=== PATIENT | male | born 1950 | race Caucasian/White ===

== ENCOUNTER 2017-11-04 12:37 | Inpatient (IN) | payer OTHER, MEDICARE, BC ==
[~2017-11-04] VITALS: Ht 182.9 cm; Wt 68.0 kg
[~2017-11-04 12:37] MED LIST: AMOX1TAB64 PO; PANT40TA5 PO; SUCR1TAB PO
[2017-11-04] MEDS ORDERED: ALBUTEROL/IPRATROPIUM 2.5MG/0.5MG, 3 ML ONE ×2 (13:09→14:40)
[2017-11-04] MEDS ORDERED: SODIUM CHLORIDE FLUSH 10ML SYR IVF ONE (13:30)
[2017-11-04] MEDS ORDERED: SODIUM CHLORIDE 0.9% 1,000ML IVBOLUS ONE (13:30)
[2017-11-04] MEDS ORDERED: ALBUTEROL/IPRATROPIUM 2.5MG/0.5MG, 3 ML NPPB SCH (13:30)
[2017-11-04 13:31] LABS: BASOPHILS # (AUTO) 0.11 x10^3/uL (0-0.1); BASOPHILS % (AUTO) 1 % (0-1); EOSINOPHILS # (AUTO) 0.04 x10^3/uL (0-0.4); EOSINOPHILS % (AUTO) 0 % (1-7); LYMPHOCYTES # (AUTO) 0.56 x10^3/uL (1-3.4); LYMPHOCYTES % (AUTO) 5 % (22-44); MD NO; MEAN CORPUSCULAR HEMOGLOBIN 30.8 pg (27.5-34.5); MEAN CORPUSCULAR HGB CONC 33.6 g/dL (33.2-36.2); MEAN CORPUSCULAR VOLUME 91.8 fL (81-97); MEAN PLATELET VOLUME 9.4 fL (7.4-10.4); MONOCYTES % (AUTO) 8 % (2-9); NEUTROPHILS # (AUTO) 9.39 x10^3/uL (1.8-6.8); NEUTROPHILS % (AUTO) 85 % (42-75); PLATELET COUNT 393 x10^3/uL (130-400); RED BLOOD COUNT 5.46 x10^6/uL (4.38-5.82); RED CELL DISTRIBUTION WIDTH 14.1 % (9.4-14.8)
[2017-11-04 13:46] LABS: ALANINE AMINOTRANSFERASE 24 U/L (12-78); ALBUMIN 3.7 g/dL (3.4-5.0); ANION GAP 8 mmol/L (5-15); CALCIUM 8.8 mg/dL (8.5-10.1); CHLORIDE 102 mmol/L (98-107); CREATININE 1.01 mg/dL (0.7-1.3)
[2017-11-04 13:50] LABS: ALKALINE PHOSPHATASE 83 U/L (45-117); BILIRUBIN,TOTAL 0.7 mg/dL (0.2-1.0); TOTAL PROTEIN 7.3 g/dL (6.4-8.2); TROPONIN I < 0.015 ng/mL (0.000-0.045)
[2017-11-04] MEDS ORDERED: BENZONATATE 100 MG CAPSULE ONE (13:52)
[2017-11-04] MEDS ORDERED: ALBUTEROL 0.5%, 20ML NPPB SCH (14:30)
[2017-11-04 15:14] VITALS: BP 146/81
[2017-11-04] MEDS ORDERED: LABETALOL 5MG/ML, 20ML IVPush PRN (17:00)
[2017-11-04] MEDS ORDERED: POLYETHYLENE GLYCOL 17 GM PACKET PO PRN (17:00)
[2017-11-04] MEDS ORDERED: ONDANSETRON ODT 4 MG PO PRN (17:00)
[2017-11-04] MEDS ORDERED: ONDANSETRON 2MG/ML, 2ML IVPush PRN (17:00)
[2017-11-04] MEDS ORDERED: GUAIFENESIN/DM 200-20MG, 10ML UDC PO PRN (17:00)
[2017-11-04 17:26] LABS: D-DIMER 0.59 ug/mlFEU (0.00-0.52); INTERNATIONAL NORMALIZED RATIO 0.97 (0.93-1.1)
[2017-11-04 17:34] LABS: FREE T4 (FREE THYROXINE) 1.24 ng/dL (0.76-1.46); THYROID STIMULATING HORMONE 2.03 mIU/L (0.358-3.740)
[2017-11-04] MEDS: ENOXAPARIN 40 MG/0.4 ML SQ SCH (18:13)
[2017-11-04] MEDS: methylPREDNISolone SOD SUCC 125 MG/2 ML IVPush SCH ×2 (18:13→23:29)
[2017-11-04 19:11] LABS: TROPONIN I < 0.015 ng/mL (0.000-0.045)
[2017-11-04 19:20] VITALS: BP 107/63
[2017-11-04] MEDS: ALBUTEROL/IPRATROPIUM 2.5MG/0.5MG, 3 ML NPPB SCH (19:35)
[2017-11-04] MEDS: DOXYCYCLINE 100MG TABLET PO SCH (20:23)
[2017-11-05 02:13] VITALS: BP 133/68
[2017-11-05 05:14] LABS: BASOPHILS % (AUTO) 0 % (0-1); EOSINOPHILS % (AUTO) 0 % (1-7); LYMPHOCYTES # (AUTO) 0.33 x10^3/uL (1-3.4); LYMPHOCYTES % (AUTO) 3 % (22-44); MD NO; MEAN CORPUSCULAR HGB CONC 33.6 g/dL (33.2-36.2); MEAN CORPUSCULAR VOLUME 92.3 fL (81-97); MEAN PLATELET VOLUME 9.6 fL (7.4-10.4); MONOCYTES % (AUTO) 3 % (2-9); NEUTROPHILS # (AUTO) 11.74 x10^3/uL (1.8-6.8); NEUTROPHILS % (AUTO) 95 % (42-75); PLATELET COUNT 365 x10^3/uL (130-400); RED BLOOD COUNT 4.67 x10^6/uL (4.38-5.82)
[2017-11-05] MEDS: methylPREDNISolone SOD SUCC 125 MG/2 ML IVPush SCH ×4 (05:19→22:49)
[2017-11-05 05:28] LABS: CHLORIDE 103 mmol/L (98-107)
[2017-11-05 06:25] LABS: ALANINE AMINOTRANSFERASE 21 U/L (12-78); ALBUMIN 3.2 g/dL (3.4-5.0); ALKALINE PHOSPHATASE 68 U/L (45-117); ANION GAP 12 mmol/L (5-15); BILIRUBIN,TOTAL 0.4 mg/dL (0.2-1.0); CALCIUM 9.6 mg/dL (8.5-10.1); CHOL/HDL RATIO 2.7; CHOLESTEROL, TOTAL 129 mg/dL (140-239); CREATININE 1.08 mg/dL (0.7-1.3); HDL CHOL % 36 % (26-37); HDL CHOLESTEROL (DIRECT) 47 mg/dL (40-60); LDL CHOLESTEROL,CALCULATED 72 mg/dL (54-169); LDL/HDL RATIO 1.5 (0.5-3.0); TOTAL PROTEIN 6.9 g/dL (6.4-8.2); TRIGLYCERIDES 48 mg/dL (50-200); VLDL CHOLESTEROL 10 mg/dL (0-25)
[2017-11-05 06:37] LABS: TROPONIN I < 0.015 ng/mL (0.000-0.045)
[2017-11-05] MEDS: ALBUTEROL/IPRATROPIUM 2.5MG/0.5MG, 3 ML NPPB SCH ×4 (06:57→19:39)
[2017-11-05 06:58] VITALS: BP 150/83
[2017-11-05] MEDS ORDERED: REGADENOSON 0.4 MG/5 ML SYRINGE ONE (08:25)
[2017-11-05] MEDS: SENNA/DOCUSATE TABLET PO SCH (09:00)
[2017-11-05] MEDS: DOXYCYCLINE 100MG TABLET PO SCH ×2 (12:00→20:29)
[2017-11-05 14:03] VITALS: BP 157/87
[2017-11-05] MEDS: GUAIFENESIN 200 MG TABLET PO SCH ×2 (15:20→20:29)
[2017-11-05] MEDS: ENOXAPARIN 40 MG/0.4 ML SQ SCH (17:21)
[2017-11-05 18:57] VITALS: BP 155/82
[2017-11-05] MEDS ORDERED: OMNIPAQUE 350 MG/ML, 100ML BOTTLE ONE (21:07)
[2017-11-06 01:25] VITALS: BP 159/90
[2017-11-06] MEDS: GUAIFENESIN 200 MG TABLET PO SCH ×4 (05:33→20:13)
[2017-11-06] MEDS: methylPREDNISolone SOD SUCC 125 MG/2 ML IVPush SCH ×4 (05:33→23:29)
[2017-11-06] MEDS: ALBUTEROL/IPRATROPIUM 2.5MG/0.5MG, 3 ML NPPB SCH ×4 (06:40→19:46)
[2017-11-06 07:02] VITALS: BP 147/80
[2017-11-06] MEDS: SENNA/DOCUSATE TABLET PO SCH (08:28)
[2017-11-06] MEDS: DOXYCYCLINE 100MG TABLET PO SCH ×2 (08:28→20:14)
[2017-11-06] MEDS ORDERED: ACETAMINOPHEN 325 MG TABLET ONE (12:19)
[2017-11-06] MEDS: ACETAMINOPHEN 325 MG TABLET PO PRN (12:21)
[2017-11-06 13:22] VITALS: BP 140/70
[2017-11-06] MEDS: ENOXAPARIN 40 MG/0.4 ML SQ SCH (17:18)
[2017-11-06] MEDS ORDERED: CEFTRIAXONE PMX 1GM/50ML 50 ML IV SCH (19:00)
[2017-11-06 19:56] VITALS: BP 160/80
[2017-11-07] MEDS: ACETAMINOPHEN 325 MG TABLET PO PRN (00:05)
[2017-11-07 00:59] VITALS: BP 154/88
[2017-11-07 05:35] LABS: MEAN CORPUSCULAR HEMOGLOBIN 30.9 pg (27.5-34.5); MEAN CORPUSCULAR HGB CONC 33.1 g/dL (33.2-36.2); MEAN CORPUSCULAR VOLUME 93.3 fL (81-97); RED CELL DISTRIBUTION WIDTH 14.5 % (9.4-14.8)
[2017-11-07 05:45] LABS: CHLORIDE 100 mmol/L (98-107)
[2017-11-07 05:52] LABS: BASOPHILS % (AUTO) 0 % (0-1); EOSINOPHILS % (AUTO) 0 % (1-7); LYMPHOCYTES # (AUTO) 0.38 x10^3/uL (1-3.4); LYMPHOCYTES % (AUTO) 2 % (22-44); MD SCAN; MEAN PLATELET VOLUME 9.7 fL (7.4-10.4); MONOCYTES % (AUTO) 4 % (2-9); NEUTROPHILS # (AUTO) 14.78 x10^3/uL (1.8-6.8); NEUTROPHILS % (AUTO) 94 % (42-75); PLATELET COUNT 501 x10^3/uL (130-400)
[2017-11-07] MEDS: GUAIFENESIN 200 MG TABLET PO SCH ×2 (05:54→11:00)
[2017-11-07] MEDS: methylPREDNISolone SOD SUCC 125 MG/2 ML IVPush SCH (05:54)
[2017-11-07 05:59] LABS: ALBUMIN 3.4 g/dL (3.4-5.0); ANION GAP 12 mmol/L (5-15); CALCIUM 9.4 mg/dL (8.5-10.1)
[2017-11-07] MEDS: ALBUTEROL/IPRATROPIUM 2.5MG/0.5MG, 3 ML NPPB SCH ×2 (06:48→11:00)
[2017-11-07 08:17] VITALS: BP 152/82
[2017-11-07] MEDS: SENNA/DOCUSATE TABLET PO SCH (08:37)
[2017-11-07] MEDS: DOXYCYCLINE 100MG TABLET PO SCH (08:38)
[2017-11-07] MEDS: FUROSEMIDE 20 MG/2 ML IV SCH ×2 (08:39→09:00)
[2017-11-07] MEDS ORDERED: CEFTRIAXONE PMX 1GM/50ML 50 ML IV SCH (10:00)
[2017-11-07] MEDS ORDERED: DOXY100T PO (10:51)
[2017-11-07] MEDS ORDERED: CEFD300C37 PO (10:51)
[2017-11-07] MEDS ORDERED: PRED10TA PO (10:51)
[2017-11-07] MEDS ORDERED: TIOT18CA INH (10:52)
[2017-11-07] MEDS ORDERED: BUDE10.2 INH (10:53)
[2017-11-07] MEDS ORDERED: ALBU8.5H8 INH (14:01)
== END 2017-11-07 19:05 | disposition home or self-care (01) | DRG 189 ==
LOC: ED 13:03 → EDIP 14:15 → 4WST 15:03
PROVIDERS: ADMIT Hospitalist; ATTEND Hospitalist
DX: J96.01 Acute respiratory failure with hypoxia (principal); J44.1 Chronic obstructive pulmonary disease with (acute) exacerbation; I50.30 Unspecified diastolic (congestive) heart failure; I11.0 Hypertensive heart disease with heart failure; I16.0 Hypertensive urgency; Z80.0 Family history of malignant neoplasm of digestive organs; Z80.8 Family history of malignant neoplasm of other organs or systems; Z87.11 Personal history of peptic ulcer disease; Z87.891 Personal history of nicotine dependence
CPT/HCPCS: 36415; 71045; 71275; 78452; 80048; 80053; 80061; 82040; 83605; 83735; 83880; 84100; 84145; 84439; 84443; 84484; 85025; 85379; 85610; 87040; 87070; 87205; 93005; 93017; 93306; 94640; 96360; J0696; J1650; J2785; J7620; Q9967; A9502; C9898; J1940; J2930; J7030; J7512